=== PATIENT | male | born 1960 | race Caucasian/White ===

== ENCOUNTER 2020-12-14 09:39 | Day surgery (SDC) | payer OTHER, SELFPAY ==
--- NOTE | 2020-12-11 11:24 | ANES.CON_ITS ---
General Date of Service Date of Service: 12/11/20 Reason for Consult Requesting Provider: Tenzin Conde How Consult Conducted:: Phone Conversation Reason for Consult:: Asked by preop RN Consult Recommendation after Review:: see note Height: 5 ft 4 in Weight: 181.6 kg Body Mass Index (BMI): 68.7 Meds Allergies and Home Medications Home Medication Medication Instructions Recorded acetaminophen 500 mg PO Q6H PRN 12/11/20 albuterol sulfate 2 puff INHALATION Q4H PRN 12/11/20 albuterol sulfate 2.5 mg INHALATION Q4H 12/11/20 gabapentin 300 mg PO TID 12/11/20 hydromorphone 2 mg PO BID 12/11/20 lisinopril 10 mg PO DAILY 12/11/20 methadone 550 mg PO HS 12/11/20 nicotine 1 patch TRANSDERMAL DAILY 12/11/20 nicotine (polacrilex) 2 mg PO Q2H PRN 12/11/20 ondansetron 4 mg PO Q8H 12/11/20 pantoprazole 40 mg PO DAILY 12/11/20 tiotropium-olodaterol [Stiolto 2 puff INHALATION DAILY 12/11/20 Respimat] Current Visit Medications: Current Medications Generic Name Dose Route Start Last Admin Trade Name Freq PRN Reason Stop Dose Admin Acetaminophen 1,000 mg 12/14/20 06:00 Acetaminophen 500 Mg Tab PO Q4H PRN PRN Miscellaneous Medication 0 ml 12/14/20 06:00 Prednisolone 1%, Moxifloxacin 0.5%, Nepafenac 0.1% 5ml Btl OS DIRECTED [facility] Miscellaneous Medication 0 ml 12/14/20 06:00 Tropicam./Phenyleph. (1/2.5%) 5 Ml Btl OS DIRECTED [facility] Tetracaine HCl 0 ml 12/14/20 06:00 Tetracaine 0.5% 4 Ml Btl OS DIRECTED [facility] Medical History Medical History (Updated 12/11/20 @ 11:06 by Mars Aleman) AAA (abdominal aortic aneurysm) 3.2 cm Naranjo esophagus Bee sting allergy Chronic hoarseness Chronic pain Chronic vomiting pt. states he no longer has this COPD (chronic obstructive pulmonary disease) Enlarged prostate Gastroesophageal reflux disease with esophagitis without hemorrhage Hepatitis C Left shoulder pain Opioid dependence Osteoporosis Post laminectomy syndrome Pulmonary emphysema Pulmonary nodule Tubular adenoma of colon Umbilical hernia without mention of obstruction or gangrene Surgical History Surgical History Hx of colonoscopy Tobacco Smoking/Tobacco Use Status: Current every day Tobacco Type: cigarettes Alcohol Alcohol Intake: never Substance Use Substance use: Occasionally Substance use type: marijuana Details: edibles Vital Signs & Lab Results Point of Care Results Nursing Point of Care Results: No Data to Display Lab Results Blood Type / Crossmatch: No Data to Display Complete Blood Count: No Data to Display Complete Metabolic Panel: No Data to Display Liver Function Panel: No Data to Display Coagulation Panel: No Data to Display Cardiac Panel: No Data to Display Arterial Blood Gas: No Data to Display Venous Blood Gas: No Data to Display Pancreas Panel: No Data to Display Thyroid Panel: No Data to Display Infectious Disease: No Data to Display Blood Cultures: No Data to Display Toxicology Panel: No Data to Display Anesthesia Assessment and Plan Anesthesia History Personal History: No History of Anesthesia Complications Family History: No Family History of Anesthesia Complications Preoperative Comments:: Chatted with Kristin in preop postal sorting officer via phone to discuss his up coming cataract procedure. Discussed the concern about the amount of methadone, hydromorphone, and gabapentin along with his that he is taking and its effects on sedative type medications that we may give him for a cataract procedure. He states that he is able to lay completely flat without issue. Discussed that it would likely be the best to start as a no MKO case and that we could place and IV and give some sedation if needed. This decision will be made the day off and with the provider that will be doing Kristin's anesthesia.
[2020-12-11 11:31] VITALS: BMI 68.7
[2020-12-14] MEDS: Tropicam./Phenyleph. (1/2.5%) 5 ML BTL OS ×3 (10:14→10:25)
[2020-12-14 10:15] VITALS: BP 157/100; PULSE 84; RESP 18; TEMP 36.2; O2SAT 94
--- NOTE | 2020-12-14 10:27 | ANES.PREOP_ITS ---
General Info Date of Service Date Performed: 12/14/20 Height: 5 ft 4 in Weight: 83.6 kg Body Mass Index (BMI): 31.6 Surgical Procedure: Operation Date: 12/14/20 11:25 Proposed Procedures Side Surgeon p Cataract Extraction with IOL Implant Left Tenzin Conde MD Meds Allergies and Home Medications Allergies Allergy/AdvReac Type Severity Reaction Status Date / Time bee venom protein (honey bee) Allergy Severe Verified 12/14/20 10:11 Penicillins Allergy Severe Verified 12/14/20 10:02 codeine AdvReac Intermediate Verified 12/14/20 10:11 Home Medication Medication Instructions Recorded acetaminophen 500 mg PO Q6H PRN 12/11/20 albuterol sulfate 2 puff INHALATION Q4H PRN 12/11/20 albuterol sulfate 2.5 mg INHALATION Q4H 12/11/20 gabapentin 300 mg PO TID 12/11/20 hydromorphone 2 mg PO BID 12/11/20 lisinopril 10 mg PO DAILY 12/11/20 methadone 550 mg PO HS 12/11/20 nicotine 1 patch TRANSDERMAL DAILY 12/11/20 nicotine (polacrilex) 2 mg PO Q2H PRN 12/11/20 ondansetron 4 mg PO Q8H 12/11/20 pantoprazole 40 mg PO DAILY 12/11/20 tiotropium-olodaterol [Stiolto 2 puff INHALATION DAILY 12/11/20 Respimat] Current Visit Medications: Current Medications Generic Name Dose Route Start Last Admin Trade Name Freq PRN Reason Stop Dose Admin Acetaminophen 1,000 mg 12/14/20 06:00 Acetaminophen 500 Mg Tab PO Q4H PRN PRN Miscellaneous Medication 0 ml 12/14/20 06:00 Prednisolone 1%, Moxifloxacin 0.5%, Nepafenac 0.1% 5ml Btl OS DIRECTED [facility] Miscellaneous Medication 0 ml 12/14/20 06:00 12/14/20 10:25 Tropicam./Phenyleph. (1/2.5%) 5 Ml Btl OS 1 drp DIRECTED [facility] Administration Tetracaine HCl 0 ml 12/14/20 06:00 Tetracaine 0.5% 4 Ml Btl OS DIRECTED [facility] PFSH Active Problems Active Problems: Problem Status Onset Code Cortical cataract of left eye H26.9 Nuclear sclerotic cataract of left eye H25.12 Posterior subcapsular age-related cataract of left eye H25.042 Medical History Medical History AAA (abdominal aortic aneurysm) 3.2 cm Naranjo esophagus Bee sting allergy Chronic hoarseness Chronic pain Chronic vomiting pt. states he no longer has this COPD (chronic obstructive pulmonary disease) Enlarged prostate Gastroesophageal reflux disease with esophagitis without hemorrhage Hepatitis C Left shoulder pain Opioid dependence Osteoporosis Post laminectomy syndrome Pulmonary emphysema Pulmonary nodule Tubular adenoma of colon Umbilical hernia without mention of obstruction or gangrene Surgical History Surgical History (Updated 12/14/20 @ 10:09 by Amada Nix) History of back surgery Hx of colonoscopy Hx of tonsillectomy Tobacco Smoking/Tobacco Use Status: Current every day Tobacco Type: cigarettes Smoking cigarettes per day: 2 Alcohol Alcohol Intake: never Substance Use Substance use: Occasionally Substance use type: marijuana Details: edibles, t-1 Vital Signs and Lab Results Vital Signs Most Recent Vital Signs in EMR: Most Recent Vital Signs Temp Pulse Resp BP Pulse Ox 36.2 C L 84 18 157/100 H 94 12/14/20 10:15 12/14/20 10:15 12/14/20 10:15 12/14/20 10:15 12/14/20 10:15 Lab Results Blood Type / Crossmatch: No Data to Display Complete Blood Count: No Data to Display Complete Metabolic Panel: No Data to Display Liver Function Panel: No Data to Display Coagulation Panel: No Data to Display Cardiac Panel: No Data to Display Arterial Blood Gas: No Data to Display Venous Blood Gas: No Data to Display Pancreas Panel: No Data to Display Thyroid Panel: No Data to Display Infectious Disease: No Data to Display Blood Cultures: No Data to Display Toxicology Panel: No Data to Display Anesthesia Assessment and Plan Anesthesia History Personal History: No History of Anesthesia Complications and Awareness Under Anesthesia Family History: No Family History of Anesthesia Complications Exercise Tolerance Exercise Tolerance: Metabolic Equivalents<4 (Wheezing and SOB upon arrival) Pertinent Negatives Pertinent Negatives: No Symptoms of GERD (Well controlled) Cardiac & Pulmonary Exam Cardiac Exam: Normal S1/S2 Heart Sounds Pulmonary Exam: Rhonchi Present Cardiac and Pulmonary Comment:: Home O2 Airway Exam Known Difficult Airway: No Mallampati Class: 2 Mouth Opening: Normal (> 3cm) Thyromental Distance: Greater than 3 cm Neck Range of Motion: Full ROM Neck Circumference: Normal Teeth Condition: Edentulous ASA Classification ASA Score: ASA 3 Emergency Case?: No NPO Status NPO Status: NPO Clears >2 hours, Solids >8 hours Anesthesia Plan Resuscitation Status: Full Code Anesthesia Technique: MAC Anesthesia Airway Planned: Natural Airway Monitors Used: Standard Monitors Preoperative Comments:: Torri Molina CRNA note: Chatted with Kristin in preop commissioned defence force officer via phone to discuss his up coming cataract procedure. Discussed the concern about the amount of methadone, hydromorphone, and gabapentin along with his that he is taking and its effects on sedative type medications that we may give him for a cataract procedure. He states that he is able to lay completely flat without issue. Discussed that it would likely be the best to start as a no MKO case and that we could place and IV and give some sedation if needed. This decision will be made the day off and with the provider that will be doing Kristin's anesthesia.
[2020-12-14 10:30] VITALS: BMI 31.6
[2020-12-14] MEDS: Balanced Salt Soln.-PLUS 500 ML BAG (11:01)
[2020-12-14] MEDS: Povidone-Iodine Ophth 30 ML BTL (11:01)
[2020-12-14] MEDS: Lidocaine 1% Pres-Free 5 ML VIAL (11:02)
[2020-12-14] MEDS: Tetracaine 0.5% 4 ML BTL OS (11:02)
[2020-12-14] MEDS: Duovisc Viscoelastic System EACH 1 EACH (11:03)
[2020-12-14] MEDS: Lidocaine 2% Jelly 6 ML SYR (11:03)
[2020-12-14] MEDS: Trypan Blue 0.06% 0.5 ML SYR (11:11)
--- NOTE | 2020-12-14 11:28 | W.PM.DSUDISC ---
Discharge Plan Disposition Patient Disposition: HOME Condition: Good Discharge Details Reason For Visit: CATARACT Attending Provider: Tenzin Conde Primary Care Provider: Vee Taylor Home Meds and New Rx's Prescriptions: No Action albuterol sulfate 2.5 mg /3 mL (0.083 %) solution for nebulization 2.5 mg inhalation Q4H RF: 0 nicotine (polacrilex) 2 mg gum 2 mg PO Q2H PRNRF: 0 methadone 10 mg tablet 550 mg PO HS RF: 0 acetaminophen 500 mg Tablet 500 mg PO Q6H PRNRF: 0 pantoprazole 40 mg tablet,delayed release (DR/EC) 40 mg PO DAILY RF: 0 lisinopril 10 mg tablet 10 mg PO DAILY RF: 0 nicotine 21 mg/24 hr patch 24 hour 1 patch transdermal DAILY RF: 0 albuterol sulfate 90 mcg/actuation HFA aerosol inhaler 2 puff INHALATION Q4H PRNRF: 0 ondansetron 4 mg tablet,disintegrating 4 mg PO Q8H RF: 0 gabapentin 300 mg Tablet 300 mg PO TID RF: 0 Stiolto Respimat 2.5-2.5 mcg/actuation mist 2 puff INHALATION DAILY RF: 0 hydromorphone 2 mg tablet 2 mg PO BID RF: 0 Discharge Instructions Stand Alone Forms: Post-op Topical [address] (DSU) Discharge Orders Discharge Orders: Discharge Order (Routine); Ordered 12/14/20 Ordered By: Tenzin Conde DS: Diagnosis Discharge Diagnosis (1) Cortical cataract of left eye: Status: Resolved (2) Nuclear sclerotic cataract of left eye: Status: Resolved (3) Posterior subcapsular age-related cataract of left eye: Status: Resolved
--- NOTE | 2020-12-14 11:29 | ROE_ITS ---
Date of service: 12/14/20 Time of Service: 11:29 Operative Note Operative Note DATE OF PROCEDURE: 12/14/20 PRE-OP DIAGNOSIS: Nuclear/cortical/posterior subcapsular cataract, left eye Poor red reflex, left eye secondary to cataract POST-OP DIAGNOSIS: same PROCEDURE: Cataract extraction using phacoemulsification with intraocular lens implant, left eye, using capsular staining with Vision Blue SURGEON: Tenzin Conde ANESTHESIA TYPE: Local By Surgeon and MAC Refer to Anesthesia Record COMPLICATIONS: None Patient was transported to: same day Patient's condition: stable Implants: Tank and Tank / [employer] Tecnis [id number] Indications: Progressive decreased vision due to cataract, left eye, with poor red reflex Procedure Description: CATARACT SURGERY OPERATIVE REPORT PREOPERATIVE DIAGNOSIS: 1. Nuclear/cortical/posterior subcapsular cataract, left eye 2. Poor red reflex secondary to #1 POSTOPERATIVE DIAGNOSIS: Same OPERATION: 1. Cataract extraction using phacoemulsification with posterior chamber intraocular lens implant, left eye. 2. Capsular staining with Vision Blue IOL: IOL Applications Processor/Model: Tank & Tank / IGOR Tecnis [id number] IOL Power: + 21.5 diopters IOL Serial Number: [id number] Optic Diameter: 6.0 mm Haptic/Overall Diameter: 13.0 mm PHACO INFO: Yunier Kurani Interactiveurion Vision System with OZil and Active Fluidics Cumulative Dispersed Energy (CDE): 3.10 seconds SURGEON: Tenzin Conde MD, CHARLES ANESTHESIA: Monitored A [facility] Care (MAC), with local sub-tenon's anesthetic infiltration COMPLICATIONS: None SPECIMENS: None INDICATIONS FOR PROCEDURE: The patient is a 60-year-old gentleman with history of diminished visual acuity in his left eye. He is noted to have a dense posterior subcapsular cataract with milder nuclear and cortical cataract. The option of cataract surgery was offered to the patient and he felt he was symptomatic enough that he wished to proceed. PROCEDURE: The correct surgical eye was identified and marked as the left eye and the pupil was dilated in the preoperative area using mydriatics and cycloplegics. The dilated pupil size was 6.5 mm. Oral sedation was administered in the form of an Imprimis MKO Melt (midazolam 3mg/ketamine 25mg/ondansetron 2mg). The patient was brought to the operating room where cardiopulmonary monitoring was instituted and surgical time-out was performed, confirming the correct operative eye and IOL power. Topical anesthesia was administered and ophthalmic povidone-iodine 5% was instilled into the conjunctival fornices. Lidocaine gel was applied to the cornea and the namita-ocular area was prepped with Betadine 10% solution and draped in the usual sterile fashion for intraocular surgery, including an aperture drape. A Tegaderm transparent film dressing was cut in half and used to cover the lashes and lid margins. Care was taken to sequester the lashes and lid margins under the Tegaderm dressing. A lid speculum was placed between the lids of the operative eye and the Isabel-Vivian operating microscope was maneuvered into position. Michaela scissors were then used to make a conjunctival buttonhole approximately 6mm posterior to the limbus in the inferonasal quadrant. Blunt dissection was carried out to expose bare sclera, and a blunt-tipped sub-tenon?s anesthesia cannula was introduced and passed posteriorly along the globe where non- preserved plain lidocaine was injected into posterior sub-Tenon?s space. A sideport knife was used to make a paracentesis port superiorly/superiortemporally. Intraocular phenylephrine/lidocaine was injected int the anterior chamber.. Air was then injected into the anterior chamber, followed by Vision Blue, which was painted over the anterior capsule and then irrigated out using BSS. The anterior chamber was filled with viscoelastic. A 2.4mm keratome knife was used to create a half-thickness groove at the limbus and then to construct a three-plane near-clear corneal tunnel extending 2.0mm into clear cornea at the 3:00 position. A flap was raised on the anterior capsule and capsulorhexis forceps were used to complete a continuous curvilinear capsulorhexis of 5.5 mm. Balanced salt solution was then used to perform cortical cleaving hydrodissection and nuclear hydrodelineation until the lens could be freely rotated within the capsular bag. The lens nucleus was then disassembled and removed within the capsular bag and iris plane using phacoemulsification. Residual cortical material was removed using the 45-degree angled silicone I/A tip with 0.3mm port. The posterior capsule was carefully polished to remove as much residual lens epithelial cells as safely possible. The capsular bag was then inflated and the anterior chamber deepened with viscoelastic. The lens implant described above was inserted into the capsular bag using the IGOR Plati num Injector. A Kuglen hook was used to dial the IOL into position. Residual viscoelastic was then removed first from posterior to the IOL, then from the anterior chamber using the I/A handpiece. The lens implant was noted to center nicely within the capsular bag. The incisions were stromally hydrated, and the anterior chamber was reformed using BSS. Then 0.5cc of moxifloxacin 1.0mg/ml were injected into the capsular bag and anterior chamber. The incisions were checked with a Weck spear and found to be secure. Several drops of ophthalmic povidone-iodine 5% were then applied to the eye followed by two drops of Imprimis combination prednisolone/moxifloxacin/nepafenac solution. The drapes were removed and a clear plastic protective eye shield was placed over the eye. The patient was then returned to Same Day Surgery in stable condition.
[2020-12-14 11:31] VITALS: BP 140/98; PULSE 70; RESP 18; TEMP 36.1; O2SAT 94
--- NOTE | 2020-12-14 11:41 | W.ANESPOSTOP ---
Postoperative Evaluation Date, Time and Location Date Performed: 12/14/20 Time Performed: 11:41 Patient Location: Day Surgery Unit Vital Signs Most Recent Imported Vital Signs: Most Recent Vital Signs Temp Pulse Resp BP Pulse Ox 36.1 C L 70 18 140/98 H 94 12/14/20 11:31 12/14/20 11:31 12/14/20 11:31 12/14/20 11:31 12/14/20 11:31 Pain Score Most Recent Pain Score: Most Recent Pain Score Pain Level 0 12/14/20 11:31 Assessment Mental Status: Awake (Alert & Oriented to Patient Baseline) Airway and Respiratory Function: Patent airway with normal (patient baseline) respiratory exam Cardiovascular Function: Hemodynamically Stable Hydration Status: Adequately Hydrated Nausea & Vomiting: No Nausea or Vomiting Pain: Pt. Denies Any Pain Peripheral Nerve Block: Patient did not receive a nerve block
== END 2020-12-14 11:45 | disposition home or self-care (01) ==
PROVIDERS: PCP Family Medicine; Visit Provider Ophthalmology
PROC: (CPT 66984; principal; 2020-12-14 11:15)
DX: H25.042 Posterior subcapsular polar age-related cataract, left eye (principal)
CPT/HCPCS: 66984; V2632

== ENCOUNTER 2020-12-28 08:01 | Day surgery (SDC) | payer OTHER, SELFPAY ==
[2020-12-28 08:25] VITALS: BP 140/95; PULSE 73; RESP 16; TEMP 36.5; O2SAT 93
[2020-12-28] MEDS: Tropicam./Phenyleph. (1/2.5%) 5 ML BTL OD ×3 (08:34→08:45)
--- NOTE | 2020-12-28 09:14 | W.ANESPRE ---
General Info Date of Service Date Performed: 12/28/20 Height: 5 ft 4 in Weight: 82.4 kg Body Mass Index (BMI): 31.1 Surgical Procedure: Operation Date: 12/28/20 10:25 Proposed Procedures Side Surgeon p Cataract Extraction with IOL Implant Right Tenzin Conde MD Meds Allergies and Home Medications Allergies Allergy/AdvReac Type Severity Reaction Status Date / Time bee venom protein (honey bee) Allergy Severe Verified 12/28/20 08:35 Penicillins Allergy Severe Verified 12/28/20 08:35 codeine AdvReac Intermediate Verified 12/28/20 08:35 Home Medication Medication Instructions Recorded acetaminophen 500 mg PO Q6H PRN 12/11/20 albuterol sulfate 2 puff INHALATION Q4H PRN 12/11/20 albuterol sulfate 2.5 mg INHALATION Q4H 12/11/20 gabapentin 300 mg PO TID 12/11/20 hydromorphone 2 mg PO BID 12/11/20 lisinopril 10 mg PO DAILY 12/11/20 methadone 550 mg PO HS 12/11/20 nicotine 1 patch TRANSDERMAL DAILY 12/11/20 nicotine (polacrilex) 2 mg PO Q2H PRN 12/11/20 ondansetron 4 mg PO Q8H 12/11/20 pantoprazole 40 mg PO DAILY 12/11/20 tiotropium-olodaterol [Stiolto 2 puff INHALATION DAILY 12/11/20 Respimat] Current Visit Medications: Current Medications Generic Name Dose Route Start Last Admin Trade Name Freq PRN Reason Stop Dose Admin Acetaminophen 1,000 mg 12/28/20 06:00 Acetaminophen 500 Mg Tab PO Q4H PRN PRN Miscellaneous Medication 0 ml 12/28/20 06:00 Prednisolone 1%, Moxifloxacin 0.5%, Nepafenac 0.1% 5ml Btl OD DIRECTED [facility] Miscellaneous Medication 0 ml 12/28/20 06:00 12/28/20 08:45 Tropicam./Phenyleph. (1/2.5%) 5 Ml Btl OD 1 drp DIRECTED [facility] Administration Tetracaine HCl 0 ml 12/28/20 06:00 Tetracaine 0.5% 4 Ml Btl OD DIRECTED [facility] PFSH Active Problems Active Problems: Problem Status Onset Code Cortical cataract of left eye H26.9 Nuclear sclerotic cataract of left eye H25.12 Posterior subcapsular age-related cataract of left eye H25.042 Nuclear sclerotic cataract of right eye H25.11 Posterior subcapsular age-related cataract, right eye H25.041 Medical History Medical History AAA (abdominal aortic aneurysm) 3.2 cm Naranjo esophagus Bee sting allergy Chronic hoarseness Chronic pain Chronic vomiting pt. states he no longer has this COPD (chronic obstructive pulmonary disease) Enlarged prostate Gastroesophageal reflux disease with esophagitis without hemorrhage Hepatitis C Left shoulder pain Opioid dependence Osteoporosis Post laminectomy syndrome Pulmonary emphysema Pulmonary nodule Tubular adenoma of colon Umbilical hernia without mention of obstruction or gangrene Surgical History Surgical History (Updated 12/28/20 @ 08:35 by Gabbie Ivey) History of back surgery Hx of cataract surgery Hx of colonoscopy Hx of tonsillectomy Tobacco Smoking/Tobacco Use Status: Current every day Tobacco Type: cigarettes Smoking cigarettes per day: 2 Alcohol Alcohol Intake: never Substance Use Substance use: Occasionally Substance use type: marijuana Details: edibles, t-1 Vital Signs and Lab Results Vital Signs Most Recent Vital Signs in EMR: Most Recent Vital Signs Temp Pulse Resp BP Pulse Ox 36.5 C 73 16 140/95 H 93 12/28/20 08:25 12/28/20 08:25 12/28/20 08:25 12/28/20 08:25 12/28/20 08:25 Lab Results Blood Type / Crossmatch: No Data to Display Complete Blood Count: No Data to Display Complete Metabolic Panel: No Data to Display Liver Function Panel: No Data to Display Coagulation Panel: No Data to Display Cardiac Panel: No Data to Display Arterial Blood Gas: No Data to Display Venous Blood Gas: No Data to Display Pancreas Panel: No Data to Display Thyroid Panel: No Data to Display Infectious Disease: No Data to Display Blood Cultures: No Data to Display Toxicology Panel: No Data to Display Anesthesia Assessment and Plan Anesthesia History Personal History: No History of Anesthesia Complications and Awareness Under Anesthesia Family History: No Family History of Anesthesia Complications Exercise Tolerance Exercise Tolerance: Metabolic Equivalents<4 (Wheezing and SOB upon arrival) Pertinent Negatives Pertinent Negatives: No Symptoms of GERD Cardiac & Pulmonary Exam Cardiac Exam: Normal S1/S2 Heart Sounds Pulmonary Exam: Wheezing Present Cardiac and Pulmonary Comment:: Home O2 Airway Exam Known Difficult Airway: No Mallampati Class: 3 Mouth Opening: Normal (> 3cm) Thyromental Distance: Greater than 3 cm Neck Range of Motion: Full ROM Neck Circumference: Normal Teeth Condition: Edentulous ASA Classification ASA Score: ASA 3 Emergency Case?: No NPO Status NPO Status: NPO Clears >2 hours, Solids >8 hours Anesthesia Plan Resuscitation Status: Full Code Anesthesia Technique: MAC Anesthesia Airway Planned: Natural Airway Monitors Used: Standard Monitors Preoperative Comments:: Torri Molina NUT TIGHTENER note: Chatted with Kristin in preop chief investment officer via phone to discuss his up coming cataract procedure. Discussed the concern about the amount of methadone, hydromorphone, and gabapentin along with his that he is taking and its effects on sedative type medications that we may give him for a cataract procedure. He states that he is able to lay completely flat without issue. Discussed that it would likely be the best to start as a no MKO case and that we could place and IV and give some sedation if needed. This decision will be made the day off and with the provider that will be doing Kristin's anesthesia.
[2020-12-28 09:15] VITALS: BMI 31.1
[2020-12-28] MEDS: Tetracaine 0.5% 4 ML BTL OD (10:35)
[2020-12-28] MEDS: Duovisc Viscoelastic System EACH 1 EACH (10:36)
[2020-12-28] MEDS: Balanced Salt Soln.-PLUS 500 ML BAG (10:36)
--- NOTE | 2020-12-28 10:36 | W.PM.DSUDISC ---
Discharge Plan Disposition Patient Disposition: HOME Condition: Good Discharge Details Attending Provider: Tenzin Conde Primary Care Provider: Vee Taylor Home Meds and New Rx's Prescriptions: No Action albuterol sulfate 2.5 mg /3 mL (0.083 %) solution for nebulization 2.5 mg inhalation Q4H RF: 0 nicotine (polacrilex) 2 mg gum 2 mg PO Q2H PRNRF: 0 methadone 10 mg tablet 550 mg PO HS RF: 0 acetaminophen 500 mg Tablet 500 mg PO Q6H PRNRF: 0 pantoprazole 40 mg tablet,delayed release (DR/EC) 40 mg PO DAILY RF: 0 lisinopril 10 mg tablet 10 mg PO DAILY RF: 0 nicotine 21 mg/24 hr patch 24 hour 1 patch transdermal DAILY RF: 0 albuterol sulfate 90 mcg/actuation HFA aerosol inhaler 2 puff INHALATION Q4H PRNRF: 0 ondansetron 4 mg tablet,disintegrating 4 mg PO Q8H RF: 0 gabapentin 300 mg Tablet 300 mg PO TID RF: 0 Stiolto Respimat 2.5-2.5 mcg/actuation mist 2 puff INHALATION DAILY RF: 0 hydromorphone 2 mg tablet 2 mg PO BID RF: 0 Discharge Instructions Stand Alone Forms: Post-op Topical Cataract, Umang Pérez (DSU) Discharge Orders Discharge Orders: Discharge Order (Routine); Ordered 12/28/20 Ordered By: Tenzin Conde DS: Diagnosis Discharge Diagnosis (1) Nuclear sclerotic cataract of right eye: Status: Resolved (2) Posterior subcapsular age-related cataract, right eye: Status: Resolved
[2020-12-28] MEDS: Lidocaine 1% Pres-Free 5 ML VIAL (10:37)
[2020-12-28] MEDS: Lidocaine 2% Jelly 6 ML SYR (10:37)
--- NOTE | 2020-12-28 10:37 | ROE_ITS ---
Date of service: 12/28/20 Time of Service: 10:37 Operative Note Operative Note DATE OF PROCEDURE: 12/28/20 PRE-OP DIAGNOSIS: Nuclear/posterior subcapsular cataract, right eye POST-OP DIAGNOSIS: same PROCEDURE: Cataract extraction using phacoemulsification with intraocular lens implant, right eye SURGEON: Tenzin Conde ANESTHESIA TYPE: Local By Surgeon and MAC Refer to Anesthesia Record ESTIMATED BLOOD LOSS: 0 PATHOLOGY: none sent COMPLICATIONS: None Patient was transported to: same day Patient's condition: stable Implants: [employer] / [employer] Tecnis ZCB00 intraocular lens Indications: Progressive decreased vision due to cataract, right eye Procedure Description: CATARACT SURGERY OPERATIVE REPORT PREOPERATIVE DIAGNOSIS: Nuclear/posterior subcapsular cataract, right eye POSTOPERATIVE DIAGNOSIS: Same OPERATION: Cataract extraction using phacoemulsification with posterior chamber intraocular lens implant, right eye. IOL: IOL General Purchasing Agent/Model: [employer] / IGOR Tecnis ZCB00 IOL Power: + 20.0 diopters IOL Serial Number: [id number] Optic Diameter: 6.0mm Haptic/Overall Diameter: 13.0mm PHACO INFO: [employer] Vision System with OZil and Active [employer]uidics Cumulative Dispersed Energy (CDE): 3.27 seconds SURGEON: Tenzin Conde MD, CHARLES ANESTHESIA: Monitored Anesthesia Care (MAC), with local sub-tenon's anesthetic infiltration COMPLICATIONS: None SPECIMENS: None INDICATIONS FOR PROCEDURE: The patient is a 60-year-old gentleman with history of diminished visual acuity in both eyes secondary to the development of bilateral cataracts. He has already undergone cataract surgery in the left eye and is doing well postoperatively. He now presents for cataract surgery in the right eye. PROCEDURE: The correct surgical eye was identified and marked as the right eye and the pupil was dilated in the preoperative area using mydriatics and cycloplegics. The dilated pupil size was 7.0 mm. He elected to proceed without oral sedation. The patient was brought to the operating room where cardiopulmonary monitoring was instituted and surgical time-out was performed, confirming the correct operative eye and IOL power. Topical anesthesia was administered and ophthalmic povidone-iodine 5% was instilled into the conjunctival fornices. Lidocaine gel was applied to the cornea and the namita-ocular area was prepped with Betadine 10% solution and dr aped in the usual sterile fashion for intraocular surgery, including an aperture drape. A Tegaderm transparent film dressing was cut in half and used to cover the lashes and lid margins. Care was taken to sequester the lashes and lid margins under the Tegaderm dressing. A lid speculum was placed between the lids of the operative eye and the [employer]ivian operating microscope was maneuvered into position. Michaela scissors were then used to make a conjunctival buttonhole approximately 6mm posterior to the limbus in the inferonasal quadrant. Blunt dissection was carried out to expose bare sclera, and a blunt-tipped sub-tenon?s anesthesia cannula was introduced and passed posteriorly along the globe where non- preserved plain lidocaine was injected into posterior sub-Tenon?s space. A sideport knife was used to make a paracentesis port inferiortemporally. Intraocular phenylephrine/lidocaine was injected into the anterior chamber. The anterior chamber was then filled with viscoelastic. A 2.4mm keratome knife was used to create a half-thickness groove at the limbus and then to construct a three-plane near-clear corneal tunnel extending 2.0mm into clear cornea in the superiortemporal position. . A flap was raised on the anterior capsule and capsulorhexis forceps were used to complete a continuous curvilinear capsulorhexis of 5.0 mm. Balanced salt solution was then used to perform cortical cleaving hydrodissection and nuclear hydrodelineation until the lens could be freely rotated within the capsular bag. The lens nucleus was then disassembled and removed within the capsular bag and iris plane using phacoemulsification. Residual cortical material was removed using the I/A handpiece. The posterior capsule was carefully polished to remove as much residual lens epithelial cells as safely possible. The capsular bag was then inflated and the anterior chamber deepened with viscoelastic. The lens implant described above was inserted into the capsular bag using the IGOR [place] Injector. A Kuglen hook was used to dial the IOL into position. Residual viscoelastic was then removed first from posterior to the IOL, then from the anterior chamber using the I/A handpiece. The lens implant was noted to center nicely within the capsular bag. The incisions were stromally hydrated, and the anterior chamber was reformed using BSS. Then 0.5cc of moxifloxacin 1.0mg/ml were injected into the capsular bag and anterior chamber. The incisions were checked with a Weck spear and found to be secure. Several drops of ophthalmic povidone-iodine 5% were then applied to the eye followed by two drops of Imprimis combination prednisolone/moxifloxacin/nepafenac solution. The drapes were removed and a clear plastic protective eye shield was placed over the eye. The patient was then returned to [facility] Day Surgery in stable condition.
[2020-12-28] MEDS: Povidone-Iodine Ophth 30 ML BTL (10:39)
[2020-12-28 10:40] VITALS: BP 136/85; PULSE 82; RESP 20; TEMP 36.8; O2SAT 93
--- NOTE | 2020-12-30 09:54 | W.ANESPOSTOP ---
Postoperative Evaluation Date, Time and Location Date Performed: 12/28/20 Time Performed: 10:38 Patient Location: Day Surgery Unit Vital Signs Most Recent Imported Vital Signs: Most Recent Vital Signs Temp Pulse Resp BP Pulse Ox 36.8 C 82 20 136/85 93 12/28/20 10:40 12/28/20 10:40 12/28/20 10:40 12/28/20 10:40 12/28/20 10:40 Pain Score Most Recent Pain Score: Most Recent Pain Score Pain Level 0 12/28/20 10:40 Assessment Mental Status: Awake (Alert & Oriented to Patient Baseline) Airway and Respiratory Function: Patent airway with normal (patient baseline) respiratory exam Cardiovascular Function: Hemodynamically Stable Hydration Status: Adequately Hydrated Nausea & Vomiting: No Nausea or Vomiting Pain: Pt. Denies Any Pain Peripheral Nerve Block: Patient did not receive a nerve block
== END 2020-12-28 10:55 | disposition home or self-care (01) ==
PROVIDERS: PCP Family Medicine; Visit Provider Ophthalmology
PROC: (CPT 66984; principal; 2020-12-28 10:15)
DX: H25.041 Posterior subcapsular polar age-related cataract, right eye (principal); K21.9 Gastro-esophageal reflux disease without esophagitis; J44.9 Chronic obstructive pulmonary disease, unspecified; F11.20 Opioid dependence, uncomplicated
CPT/HCPCS: 66984; V2632